=== PATIENT | male | born 1950 | race Caucasian/White ===

== ENCOUNTER → 2016-11-29 | Outpatient (CLI) | payer MEDICARE ==
[~2016-11-29] MED LIST: ASPI-496 PO; CYCL-259 PO; FINA5TAB4 PO; HYDR-3144 PO; LISI1TAB5 PO; NAPR220C2 PO; SIMV20TA3 PO; TERA2CAP3 PO; TRAZ150T68 PO; UBID1CAP24 PO
[2016-11-29 12:40] LABS: BLOOD UREA NITROGEN 19 mg/dL (7-18)
[2016-11-29 12:55] LABS: ASPARTATE AMINO TRANSFERASE 11 U/L (15-37)
== END | disposition home or self-care (01) ==
LOC: STAR 10:41
PROVIDERS: ATTEND Orthopaedic Surgery Adult Reconstructive Orthopaedic Surgery
DX: Z01.818 Encounter for other preprocedural examination (principal); M25.551 Pain in right hip; M16.11 Unilateral primary osteoarthritis, right hip; R79.1 Abnormal coagulation profile
CPT/HCPCS: 36415; 80053; 81003; 85025; 85610; 85730; 87081; 93005

== ENCOUNTER 2016-12-12 05:38 | Inpatient (IN) | payer MEDICARE ==
[~2016-12-12] VITALS: Ht 175.3 cm; Wt 112.0 kg
[2016-12-12] MEDS ORDERED: VANCOMYCIN PER PHARMACY MC STA (06:06)
[2016-12-12] MEDS ORDERED: LACTATED RINGERS 1,000 ML IV SCH (06:18)
[2016-12-12 06:19] VITALS: BP 144/79
[2016-12-12] MEDS ORDERED: VANCOMYCIN 1,000 MG ONE (06:25)
[2016-12-12] MEDS ORDERED: TRANEXAMIC ACID 100 MG/ML, 10ML ONE (06:25)
[2016-12-12] MEDS ORDERED: LIDOCAINE 1%, 2ML SQ PRN (06:30)
[2016-12-12] MEDS ORDERED: VANCOMYCIN 2,000 MG in SODIUM CHLORIDE 0.9% 500 ML IV ONE (06:30)
[2016-12-12] MEDS ORDERED: MIDAZOLAM 1 MG/ML, 2ML ONE (07:25)
[2016-12-12] MEDS ORDERED: FENTANYL PF 100 MCG/2ML ONE ×3 (07:25→10:03)
[2016-12-12] MEDS ORDERED: ONDANSETRON 2MG/ML, 2ML ONE (07:31)
[2016-12-12] MEDS ORDERED: PROPOFOL 10 MG/ML, 20ML ONE (07:31)
[2016-12-12] MEDS ORDERED: DEXAMETHASONE 4 MG/ML, 1ML ONE (07:31)
[2016-12-12] MEDS ORDERED: CEFAZOLIN 1,000 MG ONE (07:31)
[2016-12-12] MEDS ORDERED: HYDROmorphone 1 MG/ML, 1ML ONE (08:18)
[2016-12-12] MEDS ORDERED: MIDAZOLAM 1 MG/ML, 2ML IV PRN (09:00)
[2016-12-12] MEDS ORDERED: MEPERIDINE/PF 25MG/0.5ML IVPush PRN (09:00)
[2016-12-12] MEDS ORDERED: LABETALOL 5MG/ML, 20ML IV PRN (09:00)
[2016-12-12] MEDS ORDERED: ONDANSETRON 2MG/ML, 2ML IVPush PRN (09:00)
[2016-12-12] MEDS ORDERED: PROMETHAZINE 25 MG/ML, 1ML IV PRN (09:00)
[2016-12-12] MEDS ORDERED: OXYcodone 5 MG/5 ML ORAL.SOL UDC PO PRN (09:00)
[2016-12-12] MEDS ORDERED: hydrALAzine 20 MG/ML, 1ML IV PRN (09:00)
[2016-12-12] MEDS: FENTANYL PF 100 MCG/2ML IV PRN ×4 (09:25→10:32)
[2016-12-12] MEDS ORDERED: HYDROmorphone 2 MG/ML, 1ML ONE (09:27)
[2016-12-12] MEDS ORDERED: OXYcodone 5 MG/5 ML ORAL.SOL UDC ONE (09:28)
[2016-12-12] MEDS ORDERED: BISACODYL 10 MG SUPP PR PRN (09:30)
[2016-12-12] MEDS ORDERED: SENNA/DOCUSATE TABLET PO PRN (09:30)
[2016-12-12] MEDS: HYDROmorphone 1 MG/ML, 1ML IV PRN ×9 (09:30→21:43)
[2016-12-12] MEDS ORDERED: DIPHENHYDRAMINE 25 MG CAPSULE PO PRN (09:30)
[2016-12-12] MEDS ORDERED: PROMETHAZINE 25 MG/ML, 1ML IM PRN (09:30)
[2016-12-12] MEDS ORDERED: ONDANSETRON 4 MG TABLET PO PRN (09:30)
[2016-12-12] MEDS ORDERED: ONDANSETRON 2MG/ML, 2ML IV PRN (09:30)
[2016-12-12] MEDS ORDERED: ALUMINUM/MAG/SIMETHICONE 30 ML UDC PO PRN (09:30)
[2016-12-12] MEDS ORDERED: PROMETHAZINE 12.5 MG SUPP PR PRN (09:30)
[2016-12-12] MEDS ORDERED: MAGNESIUM HYDROXIDE 8%, 30ML UDC PO PRN (09:30)
[2016-12-12] MEDS ORDERED: TRANEXAMIC ACID 1,500 MG in SODIUM CHLORIDE 0.9% 100 ML IVPB ONE (09:40)
[2016-12-12 10:59] VITALS: BP 123/66
[2016-12-12] MEDS: D5%-0.45% NACL 1,000 ML IV SCH ×2 (11:31→17:32)
[2016-12-12] MEDS: HYDROmorphone 2MG TABLET PO PRN ×4 (11:32→20:43)
[2016-12-12] MEDS ORDERED: SCOPOLAMINE PATCH, 1.5MG PATCH.TD72 TD SCH (12:00)
[2016-12-12] MEDS ORDERED: CYCLOBENZAPRINE 10 MG TABLET PO PRN (12:00)
[2016-12-12 12:49] VITALS: BP 127/70
[2016-12-12] MEDS: LISINOPRIL 20 MG TABLET PO SCH (13:12)
[2016-12-12] MEDS: HYDROCHLOROTHIAZIDE 12.5 MG CAPSULE PO SCH (13:13)
[2016-12-12] MEDS: CEFAZOLIN PMX 2GM/50ML 50 ML IVPB SCH (17:31)
[2016-12-12] MEDS: ASPIRIN 81 MG TABLET EC PO SCH (17:31)
[2016-12-12] MEDS: DIAZEPAM 5 MG TABLET PO PRN ×2 (19:46→23:38)
[2016-12-12] MEDS: HYDROcodone/APAP 10/325 MG TABLET PO PRN ×2 (19:46→23:38)
[2016-12-12 19:55] VITALS: BP 96/53
[2016-12-12] MEDS: DOCUSATE 100 MG CAPSULE PO SCH (20:43)
[2016-12-12] MEDS: SIMVASTATIN 20 MG TABLET PO SCH (20:43)
[2016-12-12] MEDS: TRAZODONE 150MG TABLET PO SCH (20:44)
[2016-12-12] MEDS: TERAZOSIN 2MG CAPSULE PO SCH (20:44)
[2016-12-12 23:51] VITALS: BP 114/62
[2016-12-13] MEDS: HYDROmorphone 2MG TABLET PO PRN ×7 (00:27→21:25)
[2016-12-13] MEDS: CEFAZOLIN PMX 2GM/50ML 50 ML IVPB SCH (01:41)
[2016-12-13] MEDS: HYDROmorphone 1 MG/ML, 1ML IV PRN ×2 (01:41→06:19)
[2016-12-13 03:20] VITALS: BP 106/50
[2016-12-13] MEDS: D5%-0.45% NACL 1,000 ML IV SCH ×3 (03:30→19:30)
[2016-12-13] MEDS: DIAZEPAM 5 MG TABLET PO PRN (03:39)
[2016-12-13] MEDS: HYDROcodone/APAP 10/325 MG TABLET PO PRN ×2 (03:40→09:41)
[2016-12-13] MEDS ORDERED: DEXAMETHASONE 4 MG/ML, 1ML IVPush SCH (06:00)
[2016-12-13] MEDS: ASPIRIN 81 MG TABLET EC PO SCH ×3 (06:06→18:31)
[2016-12-13 07:42] VITALS: BP 97/57
[2016-12-13] MEDS ORDERED: HYDROmorphone 2MG TABLET ONE (08:08)
[2016-12-13] MEDS: DOCUSATE 100 MG CAPSULE PO SCH ×2 (08:13→21:22)
[2016-12-13] MEDS: FINASTERIDE 5 MG TABLET PO SCH (08:13)
[2016-12-13] MEDS: HYDROCHLOROTHIAZIDE 12.5 MG CAPSULE PO SCH (08:13)
[2016-12-13] MEDS: LISINOPRIL 20 MG TABLET PO SCH (08:13)
[2016-12-13] MEDS: MULTIVITAMINS/MINERALS TABLET PO SCH (08:13)
[2016-12-13] MEDS ORDERED: HYDROmorphone 2MG TABLET PO PRN (09:30)
[2016-12-13] MEDS ORDERED: KETOROLAC 30 MG/1 ML IV SCH (09:30)
[2016-12-13] MEDS: KETOROLAC 30 MG/1 ML IV SCH ×2 (09:41→18:31)
[2016-12-13 12:40] VITALS: BP 87/55
[2016-12-13 15:00] VITALS: BP 98/46
[2016-12-13 20:20] VITALS: BP 122/61
[2016-12-13] MEDS: TERAZOSIN 2MG CAPSULE PO SCH (21:00)
[2016-12-13] MEDS: TRAZODONE 150MG TABLET PO SCH (21:22)
[2016-12-13] MEDS: SIMVASTATIN 20 MG TABLET PO SCH (21:22)
[2016-12-14] MEDS: HYDROcodone/APAP 10/325 MG TABLET PO PRN (01:35)
[2016-12-14] MEDS: KETOROLAC 30 MG/1 ML IV SCH (01:52)
[2016-12-14 02:30] VITALS: BP 113/65
[2016-12-14] MEDS: D5%-0.45% NACL 1,000 ML IV SCH ×2 (03:30→08:45)
[2016-12-14] MEDS: HYDROmorphone 2MG TABLET PO PRN ×3 (03:54→10:16)
[2016-12-14 06:57] VITALS: BP 112/72
[2016-12-14] MEDS: ASPIRIN 81 MG TABLET EC PO SCH (07:08)
[2016-12-14] MEDS: HYDROCHLOROTHIAZIDE 12.5 MG CAPSULE PO SCH (08:40)
[2016-12-14] MEDS: LISINOPRIL 20 MG TABLET PO SCH (08:41)
[2016-12-14] MEDS: MULTIVITAMINS/MINERALS TABLET PO SCH (08:41)
[2016-12-14] MEDS: FINASTERIDE 5 MG TABLET PO SCH (08:42)
[2016-12-14] MEDS: DOCUSATE 100 MG CAPSULE PO SCH (08:42)
[2016-12-14] MEDS ORDERED: HYDR2TAB13 PO (10:57)
[2016-12-14] MEDS ORDERED: ASPI-496 PO (10:57)
[2016-12-14] MEDS ORDERED: DOCU-30 PO (10:58)
[2016-12-14] MEDS ORDERED: TRAM50TA2 PO (10:59)
[2016-12-14] MEDS ORDERED: ONDA4TAB7 PO (11:00)
[2016-12-14] MEDS ORDERED: DIAZ5TAB PO (11:02)
== END 2016-12-14 11:20 | disposition home or self-care (01) | DRG 470 ==
LOC: ORIP 05:38 → 4NOR 10:58 → DCLOUNGE 12-14 10:52
PROVIDERS: ADMIT Orthopaedic Surgery Adult Reconstructive Orthopaedic Surgery; ATTEND Orthopaedic Surgery Adult Reconstructive Orthopaedic Surgery
PROC: 0SR901A Replacement of Right Hip Joint with Metal Synthetic Substitute, Uncemented, Open Approach (ICD-10-PCS; principal; 2016-12-12 07:30)
DX: M16.11 Unilateral primary osteoarthritis, right hip (principal); K76.0 Fatty (change of) liver, not elsewhere classified; I10 Essential (primary) hypertension; E66.9 Obesity, unspecified; M79.7 Fibromyalgia; Z68.36 Body mass index [BMI] 36.0-36.9, adult
CPT/HCPCS: 36415; 72170; 85014; 85018; 86850; 86900; C1713; J0690; J1100; J1170; J1885; J2250; J2405; J2704; J3010; J3370; C1776; J7040; J7120

== ENCOUNTER 2020-08-20 11:04 | Outpatient (CLI) | payer MEDICARE ==
[~2020-08-20 11:04] MED LIST changes: +DIAZ5TAB PO; +DOCU-131 PO; -HYDR-3144 PO; +HYDR-3245 PO; +HYDR2TAB29 PO; +LISI1TAB39 PO; -LISI1TAB5 PO; +ONDA4TAB7 PO; +SIMV20TA19 PO; -SIMV20TA3 PO; +TRAM50TA2 PO; +TRAZ150T62 PO; -TRAZ150T68 PO; -UBID1CAP24 PO; +UBID1CAP43 PO
[2020-08-20] MEDS ORDERED: LISI-167 PO (12:01)
[2020-08-20] MEDS ORDERED: OMEG-133 PO (12:01)
[2020-08-20] MEDS ORDERED: B12 COMPLEX PO (12:01)
[2020-08-20] MEDS ORDERED: FISH1CAP PO (12:01)
[2020-08-20] MEDS ORDERED: GABA300C PO (12:01)
[2020-08-20] MEDS ORDERED: TIZA4TAB2 PO (12:01)
[2020-08-20] MEDS ORDERED: IRON PO (12:01)
[2020-08-20] MEDS ORDERED: TURMERIC PO (12:01)
[2020-08-20] MEDS ORDERED: MULT-658 PO (12:01)
[2020-08-20] MEDS ORDERED: ONDA4TAB13 SL (12:01)
[2020-08-20 12:32] LABS: CHLORIDE 110 mmol/L (98-107)
[2020-08-20 12:35] LABS: ALANINE AMINOTRANSFERASE 34 U/L (12-78); ALBUMIN 4.4 g/dL (3.4-5.0); ALKALINE PHOSPHATASE 55 U/L (45-117); ANION GAP 5 mmol/L (5-15); BILIRUBIN,TOTAL 0.7 mg/dL (0.2-1.0); CREATININE 0.93 mg/dL (0.7-1.3); TOTAL PROTEIN 7.8 g/dL (6.4-8.2)
== END 2020-08-20 23:59 | disposition home or self-care (01) ==
LOC: STAR 11:04
PROVIDERS: ATTEND Orthopaedic Surgery
DX: Z01.812 Encounter for preprocedural laboratory examination (principal); Z20.822 Contact with and (suspected) exposure to COVID-19; G56.03 Carpal tunnel syndrome, bilateral upper limbs
CPT/HCPCS: 80053; 87635; 93005

== ENCOUNTER 2020-08-25 06:39 | Day surgery (SDC) | payer MEDICARE ==
[2020-08-20 11:52] VITALS: BP 163/93
[~2020-08-25] VITALS: Ht 175.3 cm; Wt 114.0 kg
[~2020-08-25 06:39] MED LIST changes: +B12 COMPLEX PO; +FISH1CAP PO; +GABA300C PO; +IRON PO; +LISI-167 PO; +MULT-658 PO; +OMEG-133 PO; +ONDA4TAB13 SL; +TIZA4TAB2 PO; +TURMERIC PO
[2020-08-25] MEDS ORDERED: LIDOCAINE-MPF 1%, 5ML ONE ×2 (07:01→08:53)
[2020-08-25] MEDS ORDERED: BUPIVACAINE/PF 0.5% ONE (07:01)
[2020-08-25 07:10] VITALS: BP 163/93
[2020-08-25] MEDS ORDERED: LACTATED RINGERS 1,000 ML IV SCH (07:30)
[2020-08-25] MEDS ORDERED: CHLORHEXIDINE 15 ML UDC MM ONE (07:30)
[2020-08-25] MEDS ORDERED: FENTANYL PF 100 MCG/2ML ONE (08:44)
[2020-08-25] MEDS ORDERED: MIDAZOLAM 1 MG/ML, 2ML ONE (08:44)
[2020-08-25] MEDS ORDERED: BETAMETHASONE 6 MG/ML, 5ML IM ONE (08:53)
[2020-08-25] MEDS ORDERED: PROPOFOL 10 MG/ML, 20ML ONE (08:53)
[2020-08-25] MEDS ORDERED: CEFAZOLIN 1,000 MG ONE (08:53)
[2020-08-25] MEDS ORDERED: LABETALOL 5MG/ML, 20ML IV PRN (09:30)
[2020-08-25] MEDS ORDERED: ONDANSETRON 2MG/ML, 2ML IVPush PRN (09:30)
[2020-08-25] MEDS ORDERED: hydrALAzine 20 MG/ML, 1ML IV PRN (09:30)
[2020-08-25] MEDS ORDERED: FENTANYL PF 100 MCG/2ML IV PRN (09:30)
[2020-08-25] MEDS ORDERED: METHOCARBAMOL 1,000 MG in DEXTROSE 5% 100 ML IV PRN (09:30)
[2020-08-25] MEDS ORDERED: HYDROmorphone 1 MG/ML, 1ML INJ IVPush PRN (09:30)
[2020-08-25] MEDS ORDERED: EPHEDRINE 50 MG/ML, 1ML IVPush PRN (09:30)
[2020-08-25] MEDS ORDERED: OXYcodone 5 MG/5 ML ORAL.SOL UDC PO PRN (09:30)
[2020-08-25] MEDS ORDERED: ACETAMINOPHEN 325 MG TABLET PO PRN (09:30)
[2020-08-25] MEDS ORDERED: OXYcodone 5 MG/5 ML ORAL.SOL UDC ONE (09:38)
[2020-08-25] MEDS ORDERED: ACETAMINOPHEN 650 MG/20.3 ML UDC ONE (09:38)
== END 2020-08-25 10:55 | disposition home or self-care (01) ==
LOC: OUT 06:39
PROVIDERS: ATTEND Orthopaedic Surgery
DX: G56.03 Carpal tunnel syndrome, bilateral upper limbs (principal); M77.12 Lateral epicondylitis, left elbow; M79.7 Fibromyalgia; I10 Essential (primary) hypertension; Z79.891 Long term (current) use of opiate analgesic; Z79.82 Long term (current) use of aspirin; Z79.899 Other long term (current) drug therapy; Z87.891 Personal history of nicotine dependence; Z82.49 Family history of ischemic heart disease and other diseases of the circulatory system; Z82.61 Family history of arthritis
CPT/HCPCS: 20605; 64721; J0690; J0702; J2250; J2704; J3010; J7120